=== PATIENT | male | born 1990 | race Caucasian/White ===

== ENCOUNTER 2016-07-26 17:50 | Emergency (ER) | payer OTHER ==
--- NOTE | 2016-07-26 18:27 | ED CLINICAL REPORT ---
Clinical Report - Physicians/Mid Levels [facility] [address] [place] [address] 07/26/2016 17:53 Patient: ALY RIVERS Time Seen: 18:33 Jul 26 2016. Arrived- By private vehicle. Historian- patient. HISTORY OF PRESENT ILLNESS Chief Complaint: Wants to stop drug use. Symptoms started today. Substances abused: Pt in and out of treatment facility,has been on meth/ heroin over last few month. Has social support brother, however brother concerned patient psychotic. Patient denies any hallucinations. No nausea, vomiting, tremors, seizure or hallucinations. Not paranoid. H/o Heroin/ meth use. REVIEW OF SYSTEMS The patient has not had weight loss. No headache, dizziness, chest pain or joint pain. All systems otherwise negative, except as recorded above. SOCIAL HISTORY History of drug use h/o meth use 3 days prior. ADDITIONAL NOTES The nursing notes have been reviewed. PHYSICAL EXAM Vital Signs: 07/26/2016 18:10 BP: 133/91. HR: 109. RR: 20. O2 saturation: 100%. Temp: 98.7 F. Appearance: Alert. Head: Head atraumatic. ENT: Normal ENT inspection. Airway intact. Neck: Normal inspection. No meningeal signs. CVS: Normal heart rate and rhythm. Heart sounds normal. Respiratory: No respiratory distress. Breath sounds normal. Abdomen: Soft and nontender. No organomegaly. No abdominal tenderness or organomegaly. Back: Normal inspection. No CVA tenderness. Neuro: Alert. Oriented X 3. PROGRESS AND PROCEDURES Course of Care: NO delusions, hallucinations, no distress. No rash, aao x 3. Stable. No si/hi . No acute complaints, no medical concerns. Patient is stable. Patient/family counseled. Disposition: Discharged. Condition: good. CLINICAL IMPRESSION Normal exam. INSTRUCTIONS ([facility] health as needed ). Understanding of the discharge instructions verbalized by patient. (Electronically signed by Paige Mathew P.A.-C 07/26/2016 18:37)
--- NOTE | 2016-07-26 18:27 | ED NURSING NOTES ---
Clinical Report - Nurses [place] [address] [place] [address] 07/26/2016 17:53 Patient: ALY RIVERS TRIAGE Acuity: LEVEL 4. Chief Complaint: (Pt requesting to speak to provider). Alert. No acute distress. SEPSIS SCREEN: Sepsis Screen. Negative (no infection suspected/documented). DIAMANTE COMA SCORE: Diamante Coma Scale: 15- eyes open spontaneously (4); best verbal response- oriented x 4 (5); best motor response- obeys commands (6). --18:22 Nicole Dowell R.N. 18:10 07/26/16. BP: 133/91. HR: 109. RR: 20. O2 saturation: 100% on room air. Temp: 98.7 F (oral). --18:22 Nicole Dowell R.N. Weight: 83.9 kg stated. Height/Length: 75 inches Per Patient. BMI: 23.1. --18:20 Nicole Dowell R.N. Medication/allergy information source: the patient. --18:22 Nicole Dowell R.N. Allergies No Known Drug Allergy. --18:45 Nicole Dowell R.N. History Arrived by private vehicle. Historian: patient. Accompanied by brother. Onset. (1 weeks ago). 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 SOCIAL HX: Current every day heavy tobacco smoker (cigarette)- 1 pack per day. History of heavy drug use: heroin, methamphetamines. Recently used drugs days ago. No alcohol use. FALL RISK ASSESSMENT: Fall risk assessment completed. No fall risk identified. NUTRITIONAL RISK ASSESSMENT: The nutritional risk assessment revealed no deficiencies. FUNCTIONAL ASSESSMENT: Functional assessment: no impairments noted. LEARNING NEEDS ASSESSMENT: The learning needs assessment revealed no barriers. SKIN INTEGRITY ASSESSMENT: Skin integrity risk assessment completed. No skin integrity risk identified. --18:22 Nicole Dowell R.N. SELF HARM ASSESSMENT: A self harm assessment was performed. The patient answered "no" to the question "Do you have thoughts of harming or killing yourself?", "Are you here because you tried to hurt yourself?" and "Have you recently had thoughts about harming or killing others?". --18:26 Nicole Dowell R.N. Assessment GENERAL / NEURO / PSYCH: Alert. Oriented X 4. Appears in no acute distress. Patient appears calm and cooperative. RESPIRATORY: Respirations not labored. CVS: Capillary refill less than 2 seconds. GI / : Abdomen nontender. SKIN: Mucous membranes are pink. Skin is warm and dry. --18:22 Nicole Dowell R.N. Interventions ID band on patient. To treatment room. --18:22 Nicole Dowell R.N. PHYSICAL ASSESSMENT 18:22 07/26/16. Ambulatory to room. GENERAL / NEURO / PSYCH: Alert. Oriented X 4. Appears in no acute distress. Speech within normal limits. Affect appears normal. Patient appears calm and cooperative. Good eye contact. Patient appears well-nourished and neat and clean. RESPIRATORY: Respirations not labored. CVS: Capillary refill less than 2 seconds. GI / : Abdomen soft and nontender. SKIN: Skin intact. Skin is warm and dry. Skin color is within normal limits. --18:22 Nicole Dowell R.N. NURSING PROGRESS NOTES 18:22 07/26/16. Two patient identifiers checked. Call light placed in reach. Side rails up x 1. Bed placed in lowest position. Brakes of bed on. --18:22 Nicole Dowell R.N. DISPOSITION / DISCHARGE Departure time: 18:30 Jul 26 2016. Condition at departure: improved and stable. No learning barriers present. Discharge instructions provided and reviewed with the patient. Patient verbalized understanding. Written instructions provided in [place] Islander. The patient was discharged by the physician journeyman operator assistant. He was discharged home. He left the Emergency Department ambulatory and via private vehicle. --18:44 Nicole Dowell R.N. Locked/Released at 07/26/2016 18:45 by Nicole Dowell R.N.
--- NOTE | 2016-07-26 18:27 | ED CLINICAL REPORT ---
Clinical Report - Physicians/Mid Levels Located Within [facility] [address] [place] [address] 07/26/2016 17:53 Patient: ALY RIVESR Time Seen: 18:33 Jul 26 2016. Arrived- By private vehicle. Historian- patient. HISTORY OF PRESENT ILLNESS Chief Complaint: Wants to stop drug use. Symptoms started today. Substances abused: Pt in and out of treatment facility,has been on meth/ heroin over last few month. Has social support brother, however brother concerned patient psychotic. Patient denies any hallucinations. No nausea, vomiting, tremors, seizure or hallucinations. Not paranoid. H/o Heroin/ meth use. REVIEW OF SYSTEMS The patient has not had weight loss. No headache, dizziness, chest pain or joint pain. All systems otherwise negative, except as recorded above. SOCIAL HISTORY History of drug use h/o meth use 3 days prior. ADDITIONAL NOTES The nursing notes have been reviewed. PHYSICAL EXAM Vital Signs: 07/26/2016 18:10 BP: 133/91. HR: 109. RR: 20. O2 saturation: 100%. Temp: 98.7 F. Appearance: Alert. Head: Head atraumatic. ENT: Normal ENT inspection. Airway intact. Neck: Normal inspection. No meningeal signs. CVS: Normal heart rate and rhythm. Heart sounds normal. Respiratory: No respiratory distress. Breath sounds normal. Abdomen: Soft and nontender. No organomegaly. No abdominal tenderness or organomegaly. Back: Normal inspection. No CVA tenderness. Neuro: Alert. Oriented X 3. PROGRESS AND PROCEDURES Course of Care: NO delusions, hallucinations, no distress. No rash, aao x 3. Stable. No si/hi . No acute complaints, no medical concerns. Patient is stable. Patient/family counseled. Disposition: Discharged. Condition: good. CLINICAL IMPRESSION Normal exam. INSTRUCTIONS ([facility] health as needed ). Understanding of the discharge instructions verbalized by patient. (Electronically signed by Paige Mathew P.A.-C 07/26/2016 18:37)
--- NOTE | 2016-07-26 18:27 | ED NURSING NOTES ---
Clinical Report - Nurses [place] [address] [place] [address] 07/26/2016 17:53 Patient: ALY RIVERS TRIAGE Acuity: LEVEL 4. Chief Complaint: (Pt requesting to speak to provider). Alert. No acute distress. SEPSIS SCREEN: Sepsis Screen. Negative (no infection suspected/documented). DIAMANTE COMA SCORE: Diamante Coma Scale: 15- eyes open spontaneously (4); best verbal response- oriented x 4 (5); best motor response- obeys commands (6). --18:22 Nicole Dowell R.N. 18:10 07/26/16. BP: 133/91. HR: 109. RR: 20. O2 saturation: 100% on room air. Temp: 98.7 F (oral). --18:22 Nicole Dowell R.N. Weight: 83.9 kg stated. Height/Length: 75 inches Per Patient. BMI: 23.1. --18:20 Nicole Dowell R.N. Medication/allergy information source: the patient. --18:22 Nicole Dowell R.N. Allergies No Known Drug Allergy. --18:45 Nicole Dowell R.N. History Arrived by private vehicle. Historian: patient. Accompanied by brother. Onset. (1 weeks ago). 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 SOCIAL HX: Current every day heavy tobacco smoker (cigarette)- 1 pack per day. History of heavy drug use: heroin, methamphetamines. Recently used drugs days ago. No alcohol use. FALL RISK ASSESSMENT: Fall risk assessment completed. No fall risk identified. NUTRITIONAL RISK ASSESSMENT: The nutritional risk assessment revealed no deficiencies. FUNCTIONAL ASSESSMENT: Functional assessment: no impairments noted. LEARNING NEEDS ASSESSMENT: The learning needs assessment revealed no barriers. SKIN INTEGRITY ASSESSMENT: Skin integrity risk assessment completed. No skin integrity risk identified. --18:22 Nicole Dowell R.N. SELF HARM ASSESSMENT: A self harm assessment was performed. The patient answered "no" to the question "Do you have thoughts of harming or killing yourself?", "Are you here because you tried to hurt yourself?" and "Have you recently had thoughts about harming or killing others?". --18:26 Nicole Dowell R.N. Assessment GENERAL / NEURO / PSYCH: Alert. Oriented X 4. Appears in no acute distress. Patient appears calm and cooperative. RESPIRATORY: Respirations not labored. CVS: Capillary refill less than 2 seconds. GI / : Abdomen nontender. SKIN: Mucous membranes are pink. Skin is warm and dry. --18:22 Nicole Dowell R.N. Interventions ID band on patient. To treatment room. --18:22 Nicole Dowell R.N. PHYSICAL ASSESSMENT 18:22 07/26/16. Ambulatory to room. GENERAL / NEURO / PSYCH: Alert. Oriented X 4. Appears in no acute distress. Speech within normal limits. Affect appears normal. Patient appears calm and cooperative. Good eye contact. Patient appears well-nourished and neat and clean. RESPIRATORY: Respirations not labored. CVS: Capillary refill less than 2 seconds. GI / : Abdomen soft and nontender. SKIN: Skin intact. Skin is warm and dry. Skin color is within normal limits. --18:22 Nicole Dowell R.N. NURSING PROGRESS NOTES 18:22 07/26/16. Two patient identifiers checked. Call light placed in reach. Side rails up x 1. Bed placed in lowest position. Brakes of bed on. --18:22 Nicoel Dowell R.N. DISPOSITION / DISCHARGE Departure time: 18:30 Jul 26 2016. Condition at departure: improved and stable. No learning barriers present. Discharge instructions provided and reviewed with the patient. Patient verbalized understanding. Written instructions provided in [place]e. The patient was discharged by the physician assistant teacher. He was discharged home. He left the Emergency Department ambulatory and via private vehicle. --18:44 Nicole Dowell R.N. Locked/Released at 07/26/2016 18:45 by Nicole Dowell R.N.
--- NOTE | 2016-07-26 18:45 | ED MAR SUMMARY ---
..... Medication Administration Record [facility] [address] [place], [place] [id number] Patient: ALY RIVERS Visit ID: [id number] 25y, M Weight: 83.9 kg Height/Length: 75 in BMI: 23.1 ALLERGIES: No Known Drug Allergy
--- NOTE | 2016-07-26 18:45 | ED DISCHARGE INSTRUCTIONS ---
Patient: ALY RIVERS General Instructions [facility] VisitID: [id number] [place] [address] 25y, M Registration Date/Time: 07/26/2016 Normal exam. INSTRUCTIONS ([facility] health as needed ). Understanding of the discharge instructions verbalized by patient. ADDITIONAL INFORMATION Normal Exam [6Yr - Adult] Based on your or your child's exam today, there are no signs of illness or injury. Be assured that the symptoms that worried you are normal. They do not suggest any illness requiring testing or treatment at this time. Home Care: You (or your child) can return to normal activities and diet. If you or your child have new or unusual symptoms not already discussed today, contact the doctor. Follow Up with the doctor for the next routine appointment. For more information: For childrens health information: www.kidshealth.org For adult health information: www.[facility].org You have been given the following additional information: Normal Exam, (Child) (Adult) (Electronically signed by Paige Mathew P.A.-C 07/26/2016 18:37)
--- NOTE | 2016-07-26 18:45 | ED MAR SUMMARY ---
..... Medication Administration Record [facility] [address] [place], [place] [id number] Patient: ALY RIVERS Visit ID: [id number] 25y, M Weight: 83.9 kg Height/Length: 75 in BMI: 23.1 ALLERGIES: No Known Drug Allergy
--- NOTE | 2016-07-26 18:45 | ED DISCHARGE INSTRUCTIONS ---
Patient: ALY RIVERS General Instructions [facility] VisitID: [id number] [place] [address] 25y, M Registration Date/Time: 07/26/2016 Normal exam. INSTRUCTIONS ([facility] health as needed ). Understanding of the discharge instructions verbalized by patient. ADDITIONAL INFORMATION Normal Exam [6Yr - Adult] Based on your or your child's exam today, there are no signs of illness or injury. Be assured that the symptoms that worried you are normal. They do not suggest any illness requiring testing or treatment at this time. Home Care: You (or your child) can return to normal activities and diet. If you or your child have new or unusual symptoms not already discussed today, contact the doctor. Follow Up with the doctor for the next routine appointment. For more information: For childrens health information: www.kidshealth.org For adult health information: www.[facility].org You have been given the following additional information: Normal Exam, (Child) (Adult) (Electronically signed by Paige Mathew P.A.-C 07/26/2016 18:37)
--- NOTE | 2016-07-26 18:45 | ED MED RECONCILIATION SUMMARY ---
Patient: ALY RIVERS Medication Reconciliation Report [facility] VisitID: [id number] [address] [place] [address] 25y, M Registration Date/Time: 07/26/2016 Weight: 83.9 kg Height/Length: 75 in. BMI: 23.1 ALLERGIES: No Known Drug Allergy The patient's Home Medications are listed below: Not obtained. The source(s) of the original Home Medication information: patient The following Medications were given to the patient in the Emergency Department: None. The following Medications were prescribed to the patient: None.
--- NOTE | 2016-07-26 18:45 | ED MED RECONCILIATION SUMMARY ---
Patient: ALY RIVERS Medication Reconciliation Report [facility] VisitID: [id number] [address] [place] [address] 25y, M Registration Date/Time: 07/26/2016 Weight: 83.9 kg Height/Length: 75 in. BMI: 23.1 ALLERGIES: No Known Drug Allergy The patient's Home Medications are listed below: Not obtained. The source(s) of the original Home Medication information: patient The following Medications were given to the patient in the Emergency Department: None. The following Medications were prescribed to the patient: None.
== END 2016-07-26 18:30 | disposition home or self-care (01) ==
LOC: ED SRH 17:50
DX: Z03.89 Encounter for observation for other suspected diseases and conditions ruled out (principal)